=== PATIENT | male | born 1945 | race Caucasian/White ===

== ENCOUNTER 2019-11-10 13:21 | Outpatient (CLI) | payer OTHER, SELFPAY ==
[2019-11-13 01:00] LABS: SARS-CoV-2 RNA Undetected (Undetected); SARS-CoV-2 Specimen Source Nasopharynx
== END 2019-11-10 13:41 ==
PROVIDERS: Visit Provider Nurse Practitioner Family
DX: Z11.59 Encounter for screening for other viral diseases (principal)
CPT/HCPCS: U0003

== ENCOUNTER 2022-02-19 14:42 | Emergency (ER) | payer OTHER, SELFPAY ==
[2022-02-19 15:09] VITALS: BP 116/60; PULSE 66; RESP 17; TEMP 36.8; O2SAT 95
--- NOTE | 2022-02-19 15:45 | DI.RAD_ITS ---
Exam(s) XR PORTABLE CHEST AP EXAM: XR PORTABLE CHEST AP CLINICAL HISTORY: cough. TECHNIQUE: 2D digital imaging was performed. COMPARISON: CR CHEST 2 VIEWS PA,LAT from 02/26/2011 FINDINGS: LUNGS: Clear. No pleural abnormality seen. HEART: Normal. MEDIASTINUM: Normal. OTHER FINDINGS: None. IMPRESSION: No acute pulmonary findings. DATA REPOSITORY: RADIATION DOSE DELIVERED: Total DLP
--- NOTE | 2022-02-19 15:58 | W.ED.GENAD ---
Discharge Plan Disposition Patient Disposition: Home Condition: Stable Discharge Details Clinical Impression: URI (upper respiratory infection) Primary Care Provider: Unknown,Unknown ED Provider: Jake Davis Home Meds and New Rx's Prescriptions: New benzonatate 200 mg capsule 200 mg PO TID PRN (Reason: cough) Qty: 30 0RF Continued insulin glargine [Lantus U-100 Insulin] 100 UNITS/ML solution 50 units IJ DAILY simvastatin 80 MG tablet 80 mg PO DAILY levothyroxine 75 MCG tablet 75 mcg PO DAILY tamsulosin 0.4 MG capsule 0.4 mg PO DAILY omeprazole 20 MG capsule,delayed release(DR/EC) 20 mg PO DAILY hydrochlorothiazide 25 MG tablet 25 mg PO DAILY insulin aspart U-100 [Novolog Flexpen U-100 Insulin] 100 UNIT/ML insulin pen 20 - 25 units SQ AC vardenafil [Levitra] 20 MG tablet 20 mg PO DAILY hydromorphone [Dilaudid] 2 MG tablet 2 mg PO Q4H PRN PRNQty: 8 0RF No Action prednisone 20 MG tablet 60 mg PO .QD Qty: 12 0RF Discharge Instructions Instructions: Upper Respiratory Infection (ED) Additional Instructions: At this time your work-up is unremarkable for any emergent findings. I do feel that you have a viral illness and that you will need plenty of rest and stay hydrated. Your blood sugar was also noted to be elevated so please continue to take your insulin as prescribed. If you are not improving by early next week please follow-up with your primary care provider for reassessment and further treatment as needed at that time. Referrals: Primary Care Provider [Outside] - 5 days Discharge Data Discharge Date/Time-TO BE ENTERED AT DEPARTURE: 02/19/22 17:59 Medical Decision Making Patient presenting the emergency department for chief complaint of cold symptoms. Patient states for last 3 to 4 days he has had body aches, nasal congestion, sore throat, headache, and a intermittent dry cough. He also does state some associated diarrhea but denies chest pain, shortness of breath, belly pain, or other systemic symptoms. He does state some subjective fever and chills. Physical exam is unremarkable for any specific findings. I do feel that patient is suffering from acute viral illness. Patient is nontoxic, has no signs of meningitis, clear lung sounds so low suspicion of pneumonia and no obvious other life-threatening etiology can be identified at this time. Given duration of symptoms we will perform COVID and flu testing. Patient is vaccinated and boosted for COVID. We will also perform chest x-ray and fingerstick. Vital signs are stable with no hypotension, no hypoxia, and all vital signs within normal range. Fingerstick does show elevated glucose and will inform patient to continue to use prescribed insulin and monitor sugars at home but I do not feel that patient is having symptoms of DKA. Review of chest x-ray and radiologist interpretation shows no acute worrisome findings. Patient is negative for COVID, influenza, and RSV. At this time I feel that patient has a viral illness and we did discuss close monitoring of symptoms along with return and follow-up precautions. I do not feel that patient requires antibiotic medications at this time but did inform him of signs that would require him to return or follow-up with primary care provider for reconsideration. After discussion of diagnosis and plan of care patient has no further needs, questions, or concerns and states clear understanding to return to the emergency department for any worsening symptoms. This documentation was generated using [employer] dictation system, please disregard any oddities of phrase or misspellings. Imaging Data Radiologic Study: Imaging: X-Ray Radiologist's impression: FINDINGS: Lungs: No consolidation. Pleural spaces: No pleural effusion. No pneumothorax. Heart/Mediastinum: No cardiomegaly. Bones/joints: Evidence of right rotator cuff repair. No displaced fracture. IMPRESSION: Negative portable chest. Sign Out No HPI General Date/Time Provider Initiated Documentation: 02/19/22 15:31. Related Data Home Medications Medication Instructions Recorded Confirmed hydrochlorothiazide 25 mg tablet 25 mg PO DAILY 07/08/13 02/19/22 insulin aspart U-100 100 unit/mL 20 - 25 units SQ AC 07/08/13 02/19/22 (3 mL) subcutaneous pen (Novolog Flexpen U-100 Insulin aspart) insulin glargine 100 unit/mL 50 units IJ DAILY 07/08/13 02/19/22 subcutaneous solution (Lantus U-100 Insulin) levothyroxine 75 mcg tablet 75 mcg PO DAILY 07/08/13 02/19/22 omeprazole 20 mg capsule,delayed 20 mg PO DAILY 07/08/13 02/19/22 release simvastatin 80 mg tablet 80 mg PO DAILY 07/08/13 02/19/22 tamsulosin 0.4 mg capsule 0.4 mg PO DAILY 07/08/13 02/19/22 vardenafil 20 mg tablet (Levitra) 20 mg PO DAILY 07/08/13 02/19/22 hydromorphone 2 mg tablet 2 mg PO Q4H PRN PRN #8 tabs 09/30/14 02/19/22 (Dilaudid) prednisone 20 mg tablet 60 mg PO .QD ##12 10/26/16 02/19/22 benzonatate 200 mg capsule 200 mg PO TID PRN cough #30 caps 02/19/22 Previous Rx's Medication Instructions Recorded hydromorphone 2 mg tablet 2 mg PO Q4H PRN PRN #8 tabs 09/30/14 (Dilaudid) prednisone 20 mg tablet 60 mg PO .QD ##12 10/26/16 benzonatate 200 mg capsule 200 mg PO TID PRN cough #30 caps 02/19/22 Allergies Allergy/AdvReac Type Severity Reaction Status Date / Time naproxen Allergy Mild Skin Rash Unverified 02/19/22 15:14 General Stated Complaint: RespSymp MING: 3 Review of Systems Constitutional Constitutional: Reports body ache(s), Reports chills, Reports fever(s), Reports headache(s), Reports malaise and Reports poor appetite Eyes Eyes: Reports system reviewed and no additional complaints, except as documented ENT Ears, Nose, Mouth, and Throat: Reports headache(s), Reports nasal congestion, Reports nasal discharge and Reports sore throat Cardiovascular Cardiovascular: Denies chest pain and Denies dyspnea Respiratory Respiratory: Reports cough and Denies dyspnea Gastrointestinal Gastrointestinal: Denies abdominal pain, Reports diarrhea, Denies nausea and Denies vomiting Genitourinary Genitourinary: Reports system reviewed and no additional complaints, except as documented Musculoskeletal Musculoskeletal: Reports myalgias Integumentary/Breasts Skin/Breast: Denies rash Neurologic Neurologic: Reports headache(s) PFSH All Active Problems (Updated 02/19/22 @ 17:35 by Jkae Davis NP) URI (upper respiratory infection) (Acute) Hypothyroidism (Chronic) Diabetes (Chronic) Hypertension (Chronic) Social History Smoking/Tobacco Use Status: Current every day Smoking risk assessment performed?: Yes Drug use: Never Do you feel safe in your relationship?: Yes Exam Const General: cooperative, comfortable and no acute distress Orientation: alert and awake [facility] Head: normal to inspection, normocephalic and atraumatic Ears: hearing grossly normal bilaterally and TM's normal bilaterally General nose exam: external nose normal Face and sinus: no erythema Mouth: oral mucosae normal, no drooling, no muffled voice and no trismus Throat: posterior oropharynx normal Neck Neck: normal visual inspection, full ROM, no lymphadenopathy, no meningeal signs, trachea midline and supple Resp Effort & Inspection: normal respiratory effort, able to speak in complete sentences and cough Quality of cough: dry Auscultation: clear to auscultation bilaterally Cardio Rate: regular rate Rhythm: regular rhythm Heart Sounds: S1 normal, S2 normal, normal S1 and S2, no click, no gallops, no murmurs and no rubs Skin General skin exam: no rashes or lesions noted and dry skin (warm) Neuro General: patient alert, patient awake, patient oriented x3, gait normal and moves all extremities Cognition: normal cognition Speech: speech normal Course Vital Signs Vital signs: Vital Signs Temperature 36.8 C 02/19/22 15:09 Pulse 66 02/19/22 15:09 Respiratory Rate 17 02/19/22 15:09 Blood Pressure 116/60 02/19/22 15:09 Pulse Oximetry 95 02/19/22 15:09 Temperature 36.8 C 02/19/22 15:09 Temperature Source Temporal Artery Scan 02/19/22 15:09 Pulse 66 02/19/22 15:09 Respiratory Rate 17 02/19/22 15:09 Respiratory Effort 02/19/22 15:20 Blood Pressure 116/60 02/19/22 15:09 Blood Pressure Position Sitting 02/19/22 15:09 Pulse Oximetry 95 02/19/22 15:09 Oxygen Delivery Method Room Air 02/19/22 15:09 Oxygen Flow Rate 0 02/19/22 15:09 Pain Level 4 02/19/22 15:09
[2022-02-19 16:40] VITALS: TEMP 36.8
[2022-02-19] MEDS: Acetaminophen 325 MG TAB 650 MG PO (16:40)
[2022-02-19 17:27] LABS: COVID-19 PCR Negative (Negative); Influenza A PCR Negative (Negative); Influenza B PCR Negative (Negative); RSV PCR Negative (Negative)
[2022-02-19 17:29] LABS: Source Nasopharynx
[2022-02-19 17:41] VITALS: BP 136/70; PULSE 65; RESP 18; TEMP 36.6; O2SAT 94
--- NOTE | 2022-02-19 18:07 | DI.VRAD_ITS ---
PROCEDURE INFORMATION: Exam: XR Chest Exam date and time: 02/19/2022 16:54 Age: 76 years old Clinical indication: Cough TECHNIQUE: Imaging protocol: Radiologic exam of the chest. Views: 1 view. COMPARISON: No relevant prior studies available. FINDINGS: Lungs: No consolidation. Pleural spaces: No pleural effusion. No pneumothorax. Heart/Mediastinum: No cardiomegaly. Bones/joints: Evidence of right rotator cuff repair. No displaced fracture. IMPRESSION: Negative portable chest. Dictated and Authenticated by: Kaitlin Solomon MD. Ordering:LUZMARIA Joseph MD
== END 2022-02-19 17:59 | disposition home or self-care (01) ==
PROVIDERS: Emergency Provider Nurse Practitioner Family
DX: J06.9 Acute upper respiratory infection, unspecified (principal); Z20.822 Contact with and (suspected) exposure to COVID-19; R05.1 Acute cough; E11.9 Type 2 diabetes mellitus without complications
CPT/HCPCS: 36416; 82962; 87637; 99283; 71045

== ENCOUNTER 2023-06-30 22:48 | Emergency (ER) | payer OTHER, SELFPAY ==
[2023-06-30 22:51] VITALS: BP 184/99; PULSE 79; RESP 16; TEMP 36.6; O2SAT 98
[2023-06-30] MEDS: Amox. 875/Clav. 125, 2 TABS/BTL 1 TAB PO (23:20)
[2023-06-30] MEDS: Amoxicillin 875/Clav. 125 TAB PO (23:21)
[2023-06-30] MEDS: oxyCODONE 5 MG TAB PO (23:21)
--- NOTE | 2023-06-30 23:54 | ED.GENADUL_ITS ---
Discharge Plan Disposition Patient Disposition: Home Condition: Stable Discharge Details Clinical Impression: Pain, dental Primary Care Provider: Joe Lee ED Provider: William Rubi Home Meds and New Rx's Prescriptions: New amoxicillin-pot clavulanate 875-125 mg tablet 1 tab PO BID 6 Days Qty: 12 0RF No Action insulin glargine [Lantus U-100 Insulin] 100 UNITS/ML solution 50 units IJ DAILY simvastatin 80 MG tablet 80 mg PO DAILY levothyroxine 75 MCG tablet 75 mcg PO DAILY tamsulosin 0.4 MG capsule 0.4 mg PO DAILY omeprazole 20 MG capsule,delayed release(DR/EC) 20 mg PO DAILY hydrochlorothiazide 25 MG tablet 25 mg PO DAILY insulin aspart U-100 [Novolog FlexPen U-100 Insulin] 100 UNIT/ML insulin pen 20 - 25 units SQ AC vardenafil [Levitra] 20 MG tablet 20 mg PO DAILY hydromorphone [Dilaudid] 2 MG tablet 2 mg PO Q4H PRN PRNQty: 8 0RF prednisone 20 MG tablet 60 mg PO .QD Qty: 12 0RF benzonatate 200 mg capsule 200 mg PO TID PRN (Reason: cough) Qty: 30 0RF Discharge Instructions Instructions: Toothache (ED) Additional Instructions: please start antibiotics as prescribed follow up with dentist Discharge Data Discharge Date/Time-TO BE ENTERED AT DEPARTURE: 06/30/23 23:25 HPI General Date/Time Provider Initiated Documentation: 06/30/23 23:05 . Limitations to Documentation: no limitations . Information obtained by: patient and family . HPI Narrative: 77-year-old gentleman with past medical history of diabetes, hypertension, hypothyroidism and chronic dental pain presents for evaluation of worsening of his dental pain. He reports that he has an issue with his upper right-sided molars. He has been evaluated by a dentist but was referred to oral surgeon for extraction. He has not been able to follow-up with an oral surgeon to get them extracted. He reports the pain is severe, not improved with his daily tramadol or Tylenol use. Associated with some mild facial swelling. Denies any drainage or fevers. Reports pain worse with eating. Related Data Home Medications Medication Instructions Recorded Confirmed hydrochlorothiazide 25 mg tablet 25 mg PO DAILY 07/08/13 02/19/22 insulin aspart U-100 100 unit/mL 20 - 25 units SQ AC 07/08/13 02/19/22 (3 mL) subcutaneous pen (Novolog FlexPen U-100 Insulin aspart) insulin glargine 100 unit/mL 50 units IJ DAILY 07/08/13 02/19/22 subcutaneous solution (Lantus U-100 Insulin) levothyroxine 75 mcg tablet 75 mcg PO DAILY 07/08/13 02/19/22 omeprazole 20 mg capsule,delayed 20 mg PO DAILY 07/08/13 02/19/22 release simvastatin 80 mg tablet 80 mg PO DAILY 07/08/13 02/19/22 tamsulosin 0.4 mg capsule 0.4 mg PO DAILY 07/08/13 02/19/22 vardenafil 20 mg tablet (Levitra) 20 mg PO DAILY 07/08/13 02/19/22 hydromorphone 2 mg tablet 2 mg PO Q4H PRN PRN #8 tabs 09/30/14 02/19/22 (Dilaudid) prednisone 20 mg tablet 60 mg (3 x 20 mg) PO .QD ##12 10/26/16 02/19/22 benzonatate 200 mg capsule 200 mg PO TID PRN cough #30 caps 02/19/22 amoxicillin 875 mg-potassium 1 tab PO BID 6 days #12 tabs 06/30/23 clavulanate 125 mg tablet Previous Rx's Medication Instructions Recorded hydromorphone 2 mg tablet 2 mg PO Q4H PRN PRN #8 tabs 09/30/14 (Dilaudid) prednisone 20 mg tablet 60 mg (3 x 20 mg) PO .QD ##12 10/26/16 benzonatate 200 mg capsule 200 mg PO TID PRN cough #30 caps 02/19/22 amoxicillin 875 mg-potassium 1 tab PO BID 6 days #12 tabs 06/30/23 clavulanate 125 mg tablet Allergies Allergy/AdvReac Type Severity Reaction Status Date / Time naproxen Allergy Mild Skin Rash Unverified 02/19/22 15:14 General Stated Complaint: DentalOral MING: 4 Exam Narrative Exam Narrative: Review of Systems: All systems reviewed & are unremarkable except as noted in HPI and below Well-developed, no acute distress Slight right-sided facial swelling, not significant, no tenderness to palpation over the area Upper right posterior molars cracks, carious, no significant gingival swelling TM normal, no mastoid tenderness PERRL, normal conjunctiva RRR Unlabored respiratory effort Nondistended abdomen Extremities w/o deformity, no cyanosis, no edema No rashes or lesions. no focal neurologic deficits Appropriate mood and affect Course Vital Signs Vital signs: Vital Signs Temperature 36.6 C 06/30/23 22:51 Pulse 79 06/30/23 22:51 Respiratory Rate 16 06/30/23 22:51 Blood Pressure 184/99 H 06/30/23 22:51 Pulse Oximetry 98 06/30/23 22:51 Temperature 36.6 C 06/30/23 22:51 Temperature Source Oral 06/30/23 22:51 Pulse 79 06/30/23 22:51 Respiratory Rate 16 06/30/23 22:51 Respiratory Effort Normal 06/30/23 22:58 Blood Pressure 184/99 H 06/30/23 22:51 Pulse Oximetry 98 06/30/23 22:51 Oxygen Delivery Method Room Air 06/30/23 22:51 Oxygen Flow Rate 0 06/30/23 22:51 Pain Level 8 06/30/23 22:51 Medical Decision Making Emergent evaluation of dental pain. Patient has small amount of facial swelling, no evidence of mastoiditis, low risk angina or other deep space infection. There is no obvious dental abscess that is drainable on my examination. He does need a dental extraction. Will start Augmentin. Discussed appropriate pain control. Will give a single dose of oxycodone in the emergency department, but since the patient is on tramadol at home I do not feel comfortable prescribing any additional pain medication. Recommend close follow-up with his PCP and pain management team as well as oral surgeon for definitive care. Quality:SDOH Health Related Social Needs: No Data to Display PFSH All Active Problems Pain, dental (Acute) Hypothyroidism (Chronic) Diabetes (Chronic) Hypertension (Chronic) Social History Smoking/Tobacco Use Status: Current every day Tobacco Type: cigarettes Smoking risk assessment performed?: Yes Drug use: Never Do you feel safe in your relationship?: Yes
== END 2023-06-30 23:25 | disposition home or self-care (01) ==
PROVIDERS: Emergency Provider Emergency Medicine; PCP Internal Medicine Geriatric Medicine
DX: K08.89 Other specified disorders of teeth and supporting structures (principal); E11.9 Type 2 diabetes mellitus without complications; E03.9 Hypothyroidism, unspecified
CPT/HCPCS: 99283

== ENCOUNTER 2023-07-15 17:24 | Emergency (ER) | payer OTHER, SELFPAY ==
[2023-07-15 17:26] VITALS: BP 157/69; PULSE 69; RESP 16; TEMP 37.2; O2SAT 98
--- NOTE | 2023-07-15 17:41 | ED.GENADUL_ITS ---
Discharge Plan Disposition Patient Disposition: Home Condition: Stable Discharge Details Clinical Impression: Healing wound Primary Care Provider: Joe Lee ED Provider: Jamie Thorne Home Meds and New Rx's Prescriptions: Continued insulin glargine [Lantus U-100 Insulin] 100 UNITS/ML solution 50 units IJ DAILY simvastatin 80 MG tablet 80 mg PO DAILY levothyroxine 75 MCG tablet 75 mcg PO DAILY tamsulosin 0.4 MG capsule 0.4 mg PO DAILY omeprazole 20 MG capsule,delayed release(DR/EC) 20 mg PO DAILY hydrochlorothiazide 25 MG tablet 25 mg PO DAILY insulin aspart U-100 [Novolog FlexPen U-100 Insulin] 100 UNIT/ML insulin pen 20 - 25 units SQ AC vardenafil [Levitra] 20 MG tablet 20 mg PO DAILY hydromorphone [Dilaudid] 2 MG tablet 2 mg PO Q4H PRN PRNQty: 8 0RF prednisone 20 MG tablet 60 mg PO .QD Qty: 12 0RF Discharge Instructions Additional Instructions: Your wound appears normal without signs of infection currently Follow-up with your primary care provider or the person that did the procedure within a week If you feel more ill, have severe worsening pain or fevers return to the emergency department for reevaluation HPI General Mode of arrival: ambulatory . Date/Time Provider Initiated Documentation: 07/15/23 17:25 . Limitations to Documentation: no limitations . Information obtained by: patient . History of Present Illness 77 year old M presents to the emergency department with the chief complaint of Wound inspection, described as mild, Patient started experiencing this week(s) (1) and it has been constant. No relieving factors improve symptom(s), No exacerbating factors reported . Patient notes no other symptoms.. Patient did receive the following treatments prior to arrival, none Related Data Home Medications Medication Instructions Recorded Confirmed hydrochlorothiazide 25 mg tablet 25 mg PO DAILY 07/08/13 07/15/23 insulin aspart U-100 100 unit/mL 20 - 25 units SQ AC 07/08/13 07/15/23 (3 mL) subcutaneous pen (Novolog FlexPen U-100 Insulin aspart) insulin glargine 100 unit/mL 50 units IJ DAILY 07/08/13 07/15/23 subcutaneous solution (Lantus U-100 Insulin) levothyroxine 75 mcg tablet 75 mcg PO DAILY 07/08/13 07/15/23 omeprazole 20 mg capsule,delayed 20 mg PO DAILY 07/08/13 07/15/23 release simvastatin 80 mg tablet 80 mg PO DAILY 07/08/13 07/15/23 tamsulosin 0.4 mg capsule 0.4 mg PO DAILY 07/08/13 07/15/23 vardenafil 20 mg tablet (Levitra) 20 mg PO DAILY 07/08/13 07/15/23 hydromorphone 2 mg tablet 2 mg PO Q4H PRN PRN #8 tabs 09/30/14 07/15/23 (Dilaudid) prednisone 20 mg tablet 60 mg (3 x 20 mg) PO .QD ##12 10/26/16 07/15/23 Previous Rx's Medication Instructions Recorded hydromorphone 2 mg tablet 2 mg PO Q4H PRN PRN #8 tabs 09/30/14 (Dilaudid) prednisone 20 mg tablet 60 mg (3 x 20 mg) PO .QD ##12 10/26/16 Allergies Allergy/AdvReac Type Severity Reaction Status Date / Time naproxen Allergy Mild Skin Rash Unverified 07/15/23 17:33 General Stated Complaint: RashLesion MING: 4 Review of Systems All systems reviewed & are unremarkable except as noted in HPI and below Constitutional Constitutional: Denies chills, Denies fever(s) and Denies weakness Cardiovascular Cardiovascular: Denies chest pain and Denies dyspnea Respiratory Respiratory: Denies cough and Denies dyspnea Gastrointestinal Gastrointestinal: Denies abdominal pain, Denies nausea and Denies vomiting Musculoskeletal Musculoskeletal: Denies joint swelling Neurologic Neurologic: Denies weakness Exam Const General: no acute distress Orientation: alert [facility] Head: normal to inspection Ears: external ears normal General nose exam: external nose normal Mouth: moist mucous membranes Eyes General: appearance normal, both eyes and all related structures Neck Neck: normal visual inspection Resp Effort & Inspection: normal respiratory effort and able to speak in complete sentences Cardio Rate: regular rate Skin General skin exam: elasticity normal Neuro General: patient alert and patient oriented x3 Extrem General: normal to inspection Psych Mental Status: mental status grossly normal Course Vital Signs Vital signs: Vital Signs Temperature 37.2 C 07/15/23 17:26 Pulse 69 07/15/23 17:26 Respiratory Rate 16 07/15/23 17:26 Blood Pressure 157/69 H 07/15/23 17:26 Pulse Oximetry 98 07/15/23 17:26 Temperature 37.2 C 07/15/23 17:26 Temperature Source Tympanic 07/15/23 17:26 Pulse 69 07/15/23 17:26 Respiratory Rate 16 07/15/23 17:26 Respiratory Effort Normal 07/15/23 17:32 Blood Pressure 157/69 H 07/15/23 17:26 Pulse Oximetry 98 07/15/23 17:26 Oxygen Delivery Method Room Air 07/15/23 17:26 Oxygen Flow Rate 0 07/15/23 17:26 Pain Level 6 07/15/23 17:26 Medical Decision Making 77-year-old male who [facility], comes in after he had some bleeding from the wound. Denies any fevers, no new pain or discomfort at the site. He arrives ambulatory and appears well in no distress. He has an approximately 5 cm vertical incision with sutures in place, there is 1 mm of mild surrounding erythema, no warmth, no tenderness, no drainage, no fluctuance. Wound appears to be well-healing without any signs of infection. Discussed with him and do not feel antibiotics indicated. Advised to follow-up with his PCP or the person that did the procedure within 1 week, return precautions given Differential Diagnosis Differential Diagnosis: Hematoma, postop healing, wound infection Quality:SDOH Health Related Social Needs: No Data to Display PFSH All Active Problems (Updated 07/15/23 @ 17:44 by Jamie Thorne MD) Healing wound (Acute) Pain, dental (Acute) Hypothyroidism (Chronic) Diabetes (Chronic) Hypertension (Chronic) Social History Smoking/Tobacco Use Status: Current every day Tobacco Type: cigarettes Smoking risk assessment performed?: Yes Drug use: Never Do you feel safe in your relationship?: Yes
== END 2023-07-15 17:58 | disposition home or self-care (01) ==
LOC: ER 18:20
PROVIDERS: Emergency Provider Emergency Medicine; PCP Internal Medicine Geriatric Medicine
DX: L76.82 Other postprocedural complications of skin and subcutaneous tissue (principal); E11.9 Type 2 diabetes mellitus without complications; Z79.4 Long term (current) use of insulin
CPT/HCPCS: 99282

== ENCOUNTER 2023-07-24 21:07 | Emergency (ER) | payer OTHER, SELFPAY ==
[2023-07-24] VITALS (51 sets, daily range): BP systolic 146–152; BP diastolic 69–90; PULSE 55–70; RESP 11–22; O2SAT 92–96
--- NOTE | 2023-07-24 21:30 | DI.CT_ITS ---
Exam(s) CT ABDOMEN PELVIS W EXAM: CT ABDOMEN PELVIS W CLINICAL HISTORY: firm hard abd, worsening distension over months. TECHNIQUE: Imaging Protocol: Axial computed tomography images with coronal and sagittal reformatted images were created and reviewed CONTRAST MATERIAL: Intravenous: Omnipaque-350 100cc Oral: None COMPARISON: CT RENAL COLIC WO CONTRAST from 09/29/2014 FINDINGS: VISUALIZED LUNG BASES: No nodules nor pleural effusions evident. ABDOMEN: There is no ascites. GI: Abnormal density-possible mass in the 3rd part of the duodenum Mesentery: There is very mild streaking in the central mesentery, not associated with the thrombosis of mesenteric vessels. No gross mesenteric lymphadenopathy evident. LIVER: There are no focal hepatic lesions evident. No dilated intrahepatic ducts. GALLBLADDER/BILIARY: No obvious gallbladder pathology. CBD is not dilated. PANCREAS: No evidence of pancreatic mass nor dilatation of the pancreatic duct. SPLEEN: Spleen is not enlarged. No obvious intrasplenic lesions. Splenic and portal veins are paten t. ADRENALS: Nonspecific thickening of both adrenal glands, slightly more so on the left side. KIDNEYS:There is 5 centimeter cyst in superior pole of the right kidney. Does not require further wo rkup. No solid lesions in either kidney. Bilateral nephrolithiasis. ABDOMINAL AORTA: Abdominal aorta is not enlarged. LYMPH NODES:There is no retroperitoneal nor paraaortic adenopathy. ABDOMINAL WALL: No evidence of significant anterior abdominal wall nor inguinal hernia. GI: There is no evidence of bowel obstruction, free air, nor abscess. PELVIS: GI: No evidence of appendicitis.No evidence of sigmoid diverticulitis.Moderate amount of fecal materi al in the colon. LYMPH NODES: There is no intrapelvic nor inguinal adenopathy. REPRODUCTIVE: Enlarged prostate gland. Measures 6 cm across. URINARY BLADDER: No calculi nor obvious masses evident OSSEOUS: No fractures and no significant osseous lesions. Right hip prosthesis evident. Previous lumbar spine decompression surgery/laminectomies. IMPRESSION: 1. Bilateral nonobstructive nephrolithiasis. No staghorn calculi. No evidence of pyelonephritis. 2. There is mild streaking in the central mesentery. No associated matted lymph nodes nor gross mese nteric lymphadenopathy evident. There are no thrombosed mesenteric vessels. 3. Bilateral adrenal gland thickening, slightly more so on the left side. 4. Moderate amount of increased fecal material in the colon but no gross distention. No fecal impact ion. No evidence of diverticulitis. No appendicitis. No ascites. 5. enlarged prostate gland. RADIATION DOSE DELIVERED: 1,092.52mGy.cm Total DLP DATA REPOSITORY: All CT scans at this facility are submitted to the National Radiology Data Registry (NRDR) Dose Index Registry (DIR) with the [employer] ([employer]). RADIATION OPTIMIZATION: All CT scans at this facility use at least one of these dose optimization te chniques: automated exposure control; mA and/or kV adjustment per patient size (includes targeted exa ms where dose is matched to clinical indication); or iterative reconstruction.
--- NOTE | 2023-07-24 21:36 | W.ED.GENAD ---
Discharge Plan Disposition Patient Disposition: Home Condition: Stable Discharge Details Chief Complaint: SOB Clinical Impression: Mesenteric panniculitis, Elevated lipase Primary Care Provider: Joe Lee ED Provider: Nas Moulton Home Meds and New Rx's Prescriptions: No Action insulin glargine [Lantus U-100 Insulin] 100 UNITS/ML solution 50 units IJ DAILY simvastatin 80 MG tablet 80 mg PO DAILY levothyroxine 75 MCG tablet 75 mcg PO DAILY tamsulosin 0.4 MG capsule 0.4 mg PO DAILY omeprazole 20 MG capsule,delayed release(DR/EC) 20 mg PO DAILY hydrochlorothiazide 25 MG tablet 25 mg PO DAILY insulin aspart U-100 [Novolog FlexPen U-100 Insulin] 100 UNIT/ML insulin pen 20 - 25 units SQ AC vardenafil [Levitra] 20 MG tablet 20 mg PO DAILY hydromorphone [Dilaudid] 2 MG tablet 2 mg PO Q4H PRN PRNQty: 8 0RF prednisone 20 MG tablet 60 mg PO .QD Qty: 12 0RF Discharge Instructions Additional Instructions: Your CT scan showed some inflammation of your mesentery described as mesenteric panniculitis, your lipase level was also elevated today. Please follow-up closely with your primary care physician at the [facility] to discuss further treatment and diagnostic studies for your shortness of breath and abdominal symptoms. Please return to the emergency department for any worsening symptoms HPI General Date/Time Provider Initiated Documentation: 07/24/23 21:18. HPI Narrative: 77-year-old male history of smoking presents with worsening abdominal distention and tightness that is making it harder for him to breathe. No longer drinks. Denies history of liver disease. Had recent biopsy of lesion on his back. Denies cough fever chills nausea vomiting or chest pain Related Data Home Medications Medication Instructions Recorded Confirmed hydrochlorothiazide 25 mg tablet 25 mg PO DAILY 07/08/13 07/15/23 insulin aspart U-100 100 unit/mL 20 - 25 units SQ AC 07/08/13 07/15/23 (3 mL) subcutaneous pen (Novolog FlexPen U-100 Insulin aspart) insulin glargine 100 unit/mL 50 units IJ DAILY 07/08/13 07/15/23 subcutaneous solution (Lantus U-100 Insulin) levothyroxine 75 mcg tablet 75 mcg PO DAILY 07/08/13 07/15/23 omeprazole 20 mg capsule,delayed 20 mg PO DAILY 07/08/13 07/15/23 release simvastatin 80 mg tablet 80 mg PO DAILY 07/08/13 07/15/23 tamsulosin 0.4 mg capsule 0.4 mg PO DAILY 07/08/13 07/15/23 vardenafil 20 mg tablet (Levitra) 20 mg PO DAILY 07/08/13 07/15/23 hydromorphone 2 mg tablet 2 mg PO Q4H PRN PRN #8 tabs 09/30/14 07/15/23 (Dilaudid) prednisone 20 mg tablet 60 mg (3 x 20 mg) PO .QD ##12 10/26/16 07/15/23 Previous Rx's Medication Instructions Recorded hydromorphone 2 mg tablet 2 mg PO Q4H PRN PRN #8 tabs 09/30/14 (Dilaudid) prednisone 20 mg tablet 60 mg (3 x 20 mg) PO .QD ##12 10/26/16 Allergies Allergy/AdvReac Type Severity Reaction Status Date / Time naproxen Allergy Mild Skin Rash Unverified 07/15/23 17:33 General Stated Complaint: SOB MING: 3 Review of Systems Narrative: Review of Systems Constitutional: negative Eyes: negative ENT: negative Cardiovascular: negative Respiratory: negative Gastrointestinal: Abdominal tightness : negative Musculoskeletal: negative Skin: negative Neurologic: negative Psych: negative Exam Narrative Exam Narrative: Physical Examination General: alert, awake, cooperative, resting comfortably, no acute distress HEENT: normocephalic, atraumatic; PERRL, EOM intact, conjunctiva normal; no nasal discharge; moist mucous membranes, oral and pharyngeal mucosa normal, tolerating secretions Neck: supple, trachea midline; full ROM Chest: normal to inspection Respiratory: normal respiratory effort, speaking in full sentences, clear to auscultation, no wheezing, rales or rhonchi Cardiac: regular rate, regular rhythm, S1S2 intact, no murmurs rubs or gallops GI: Firm large abdomen nontender no appreciable fluid wave Back: Well-healing soft tissue biopsy site no active bleeding no purulence Skin: no lesions, rashes or trauma appreciated Neuro: AAOx3, normal speech, moving all extremities Psych: Appropriate mood and affect Course Vital Signs Vital signs: Vital Signs Pulse 70 07/24/23 21:13 Respiratory Rate 18 07/24/23 21:13 Blood Pressure 146/90 H 07/24/23 21:13 Pulse Oximetry 96 07/24/23 21:13 Temperature Source Tympanic 07/24/23 21:13 Pulse 70 07/24/23 21:13 Respiratory Rate 18 07/24/23 21:13 Respiratory Effort Normal, Non-Labored 07/24/23 21:19 Blood Pressure 146/90 H 07/24/23 21:13 Blood Pressure Position Sitting 07/24/23 21:13 Pulse Oximetry 96 07/24/23 21:13 Oxygen Delivery Method Room Air 07/24/23 21:13 Oxygen Flow Rate 0 07/24/23 21:13 Pain Level 7 07/24/23 21:13 Medical Decision Making 77-year-old male presents with subjective tightness to his abdomen that is affecting his breathing worsening over the past several months, patient denies cough fevers chills nausea vomiting or chest pain, patient does have firm large abdomen nontender no fluid wave appreciated afebrile nontoxic nonperitoneal, lungs clear bilaterally, history of drinking no longer drinks, history of smoking continues to smoke. Consider abdominal ascites versus abdominal malignancy lower suspicion for bowel obstruction or intra-abdominal infection muscles consider developing COPD lower suspicion for CHF ACS or aortic pathology. Screening labs CT abdomen pelvis, chest x-ray no respiratory distress not requiring any oxygen nontachypneic. Low suspicion for pneumonia or pneumothorax. 23: 41 CT abdomen read as mesenteric panniculitis evidence of elevated lipase, no nausea no vomiting no fevers no chills nonperitoneal. No respiratory distress not hypoxic. [facility] will have an [facility]. Home care instructions and return precautions given Quality:SDOH Health Related Social Needs: No Data to Display [facility] All Active Problems (Updated 07/24/23 @ 23:43 by Nas Moulton MD) Elevated lipase (Acute) Mesenteric panniculitis (Acute) Healing wound (Acute) Pain, dental (Acute) Hypothyroidism (Chronic) Diabetes (Chronic) Hypertension (Chronic) Social History Smoking/Tobacco Use Status: Current every day Tobacco Type: cigarettes Smoking risk assessment performed?: Yes Alcohol Intake: never Drug use: Never Substance use type: does not use Do you feel safe at home: Yes Do you feel safe in your relationship?: Yes
[2023-07-24 21:54] LABS: Abs Immature Grans 0.02 10^3/uL (0.0-0.06); Absolute Basophil Count 0.05 10^3/uL (0.0-0.2); Absolute Eosinophil Count 0.18 10^3/uL (0.0-0.7); Absolute Lymphocyte Count 1.89 10^3/uL (1.2-3.4); Absolute Monocyte Count 0.48 10^3/uL (0.1-0.8); Basophils % 0.7; Eosinophils % 2.5; HCT 43.5 % (40.0-50.0); HGB 14.4 g/dL (13.5-17.5); Immature Grans % 0.3; Lymphocytes % 25.8; MCH 34.6 pg (27.0-33.0); MCHC 33.1 % (32.0-36.0); MCV 105 fL (80-95); MPV 8.9 fL (8.0-11.0); Monocytes % 6.6; Neutrophils % 64.1; Platelet Count 226 10^3/uL (130-400); RBC 4.16 10^6/uL (4.36-5.78); RDW 14.1 % (11.8-14.1); RDW-SD 54.4 fL; WBC 7.32 10^3/uL (4.4-10.8)
[2023-07-24 22:08] LABS: INR 1.1 (0.9-1.1); PTT Activated 27.7 sec (23.6-32.8); Prothrombin Time 10.6 sec (9.1-11.1)
[2023-07-24 22:09] LABS: ALT 32 U/L (16-63); AST 19 U/L (15-37); Albumin 3.7 g/dL (3.4-5.0); Alkaline Phosphatase 70 U/L (46-116); Anion Gap 8.8 mmol/L (3-11); BUN 13 mg/dL (7-18); Bilirubin, Total 0.4 mg/dL (0.2-1.0); CO2 29.2 mmol/L (21.0-32.0); CREATININE 1.2 mg/dL (0.70-1.30); Calcium 8.7 mg/dL (8.5-10.1); Chloride 103 mmol/L (98-107); Estimated GFR 62.67 (mL/min/1.73m2); Glucose 151 mg/dL (74-106); Sodium 141 mmol/L (136-145); Total Protein 6.9 g/dL (6.4-8.2)
[2023-07-24 22:10] LABS: Lipase > 375 U/L (16-77)
[2023-07-24] MEDS: Normal Saline - Diluent 50 ML VIAL IJ (22:34)
[2023-07-24] MEDS: Omnipaque 350 MG/ML 100 ML BTL IJ (22:35)
--- NOTE | 2023-07-24 22:38 | DI.RAD_ITS ---
Exam(s) XR CHEST 2V PA LATERAL EXAM: XR CHEST 2V PA LATERAL CLINICAL HISTORY: progressive sob, hx smoking. TECHNIQUE: 2D digital imaging was performed. COMPARISON: CR,XR XR PORTABLE CHEST AP from 02/19/2022 FINDINGS: 2 views: Heart size is normal. The mediastinum is not widened. Lungs are clear. No infiltrates nor pleural effusions. Again noted is evidence of previous right shoulder surgery. IMPRESSION: No acute pulmonary findings. DATA REPOSITORY: RADIATION DOSE DELIVERED:
--- NOTE | 2023-07-24 23:20 | DI.VRAD_ITS ---
PROCEDURE INFORMATION: Exam: XR Chest Exam date and time: 07/24/2023 10:43 PM Age: 77 years old Clinical indication: Other: Progressive SOB, HX smoking TECHNIQUE: Imaging protocol: Radiologic exam of the chest. Views: 2 views. COMPARISON: CR XR PORTABLE CHEST AP 02/19/2022 4:54 PM FINDINGS: Lungs: Unremarkable. No consolidation. Pleural spaces: Unremarkable. No pleural effusion. No pneumothorax. Heart/Mediastinum: Unremarkable. No cardiomegaly. Bones/joints: Unremarkable. IMPRESSION: No acute findings. Dictated and Authenticated by: Dre Giraldo MD. Ordering:PFLASH Lovell MD
--- NOTE | 2023-07-24 23:24 | DI.VRAD_ITS ---
PROCEDURE INFORMATION: Exam: CT Abdomen And Pelvis With Contrast Exam date and time: 07/24/2023 10:35 PM Age: 77 years old Clinical indication: Other: Firm hard abd, worsening disension over months TECHNIQUE: Imaging protocol: Computed tomography of the abdomen and pelvis with contrast. Radiation optimization: All CT scans at this facility use at least one of these dose optimization techniques: automated exposure control; mA and/or kV adjustment per patient size (includes targeted exams where dose is matched to clinical indication); or iterative reconstruction. Contrast material: [id number]; Contrast volume: 100 ml; Contrast route: INTRAVENOUS (IV); COMPARISON: CR XR PORTABLE CHEST AP 02/19/2022 4:54 PM FINDINGS: Liver: Normal. No mass. Gallbladder and bile ducts: Normal. No calcified stones. No ductal dilation. Pancreas: Unremarkable. Spleen: Normal. Adrenal glands: Normal. No mass. Kidneys and ureters: Right renal cyst. Nonobstructing stones in the kidneys bilaterally. Stomach and bowel: Unremarkable. No bowel wall thickening or intestinal obstruction. Appendix: Normal appendix. Intraperitoneal space: Unremarkable. No pneumoperitoneum. No abscess. Vasculature: Unremarkable. Lymph nodes: Mildly increased attenuation of the mesentery near its root with pseudocapsule and small associated mesenteric lymph nodes, consistent with mesenteric panniculitis. Urinary bladder: Unremarkable as visualized. Reproductive: Prostatomegaly. Bones/joints: Unremarkable. No acute fracture. Soft tissues: Unremarkable. IMPRESSION: Mesenteric panniculitis. Dictated and Authenticated by: Dre Giraldo MD. Ordering:NADIR Lovell MD
[2023-07-25 00:29] VITALS: BP 140/70; PULSE 80; RESP 20; TEMP 36.6; O2SAT 98
== END 2023-07-25 00:29 | disposition home or self-care (01) ==
PROVIDERS: Emergency Provider Emergency Medicine; PCP Internal Medicine Geriatric Medicine
DX: K65.4 Sclerosing mesenteritis (principal); R74.8 Abnormal levels of other serum enzymes; R14.0 Abdominal distension (gaseous); E11.9 Type 2 diabetes mellitus without complications; I10 Essential (primary) hypertension; Z79.4 Long term (current) use of insulin; F17.210 Nicotine dependence, cigarettes, uncomplicated
CPT/HCPCS: 36415; 80053; 83690; 99284; 99285; 71046; 74177; 85025; 85610; 85730; J3490

== ENCOUNTER 2024-06-16 13:53 | Emergency (ER) | payer OTHER, SELFPAY ==
[2024-06-16 14:25] VITALS: BP 118/70; PULSE 65; RESP 24; TEMP 36.7; O2SAT 88
--- NOTE | 2024-06-16 14:30 | RT.EKG_ITS ---
APPROVED REPORT Exam: Resting ECG Reason for Exam: cough, Patient Location: E HR:61 bpm ECG Measurements Heart Rate 61 AXIS PA 194 P 48 QRSd 132 QRS -16 QT 463 T 1 QTc 466 Conclusion Sinus rhythm...normal P axis, V-rate 60- 99 Right bundle branch block...QRSd>120, terminal axis(90,270) Physician: no stemi
[2024-06-16 15:24] VITALS: BP 112/68; PULSE 65; RESP 24; TEMP 36.7; O2SAT 90
--- NOTE | 2024-06-16 15:37 | DI.RAD_ITS ---
Exam(s) XR PORTABLE CHEST AP EXAM: XR PORTABLE CHEST AP CLINICAL HISTORY: SOB, cough, eval for pneumonia TECHNIQUE: 2D digital imaging was performed of the chest. One image was obtained. An AP view was ob tained. COMPARISON: CR,XR XR PORTABLE CHEST AP from 02/19/2022 CR,XR XR CHEST 2V PA LATERAL from 07/24/2023 FINDINGS: MEDIASTINUM: Normal. HEART: Normal. PULMONARY VASCULATURE: Normal. LUNGS: Clear. PLEURAL SPACE: No pleural effusion or pneumothorax. BONE:Within normal limits for the patient's age. OTHER FINDINGS:Normal. IMPRESSION: No acute pulmonary findings. DATA REPOSITORY: RADIATION DOSE DELIVERED:
[2024-06-16 15:46] LABS: COVID-19 PCR Negative (Negative); Influenza A PCR Negative (Negative); Influenza B PCR Negative (Negative); RSV PCR Negative (Negative)
[2024-06-16 15:50] LABS: Source Nasopharynx
--- NOTE | 2024-06-16 16:03 | W.ED.GENAD ---
Discharge Plan Disposition Patient Disposition: Home Condition: Good Discharge Details Clinical Impression: Community acquired pneumonia Primary Care Provider: Joe Lee ED Provider: Jason Dixon Home Meds and New Rx's Prescriptions: New doxycycline hyclate 100 mg tablet 100 mg PO BID Qty: 20 0RF amoxicillin-pot clavulanate 875-125 mg tablet 1 tab PO BID 7 Days Qty: 14 0RF prednisone 50 mg tablet 50 mg PO DAILY Qty: 5 0RF Discontinued methotrexate sodium 2.5 mg tablet 7.5 mg PO QWEEK No Action insulin glargine [Lantus U-100 Insulin] 100 UNITS/ML solution 50 units IJ DAILY simvastatin 80 MG tablet 80 mg PO DAILY levothyroxine 75 MCG tablet 112 mcg PO DAILY tamsulosin 0.4 MG capsule 0.4 mg PO DAILY omeprazole 20 MG capsule,delayed release(DR/EC) 20 mg PO DAILY hydrochlorothiazide 25 MG tablet 25 mg PO DAILY insulin aspart U-100 [Novolog FlexPen U-100 Insulin] 100 UNIT/ML insulin pen 20 - 25 units SQ AC vardenafil [Levitra] 20 MG tablet 20 mg PO DAILY hydromorphone [Dilaudid] 2 MG tablet 2 mg PO Q4H PRN PRNQty: 8 0RF aspirin 81 mg tablet,delayed release (DR/EC) 81 mg PO DAILY atorvastatin 20 mg tablet 20 mg PO QPM buspirone 10 mg tablet 20 mg PO BID camphor Spirit See Rx Instructions topical BID Rx Instructions: 1 Application topically twice a day; topically; cyanocobalamin (vitamin B-12) 1,000 mcg capsule 1,000 mcg PO DAILY diclofenac sodium 1 % gel See Rx Instructions topical TID PRN Rx Instructions: 1 application topically three times a day PRN; 1 applicaiton topically once; apply to single elbow, wrist or hand; for hand includes palm/fingers/back of hand docusate sodium 100 mg capsule 100 mg PO BID PRN dorzolamide 2 % drops 1 drp ophthalmic (eye) .Q12 duloxetine 60 mg capsule,delayed release(DR/EC) 60 mg PO DAILY lisinopril 40 mg tablet 40 mg PO DAILY Ozempic 0.25 mg or 0.5 mg(2 mg/1.5 mL) pen injector 0.5 mg subcut QWEEK omega 2-lqj-day-fish oil [Fish Oil] 1,000 mg (120 mg-180 mg) capsule 1 cap PO DAILY folic acid 1 mg tablet 3 mg PO DAILY gabapentin 600 mg tablet 600 mg PO TID Jardiance 25 mg tablet 25 mg PO DAILY Lactobacillus acidophilus 500 million cell capsule 500 mmu cells PO DAILY lidocaine 5 % adhesive patch,medicated 1 patch topical DAILY Rx Instructions: leave on most painful area for up to 12 hrs lidocaine HCl [Lidocaine Plus] 4 % cream 1 applic topical DAILY prednisone 20 MG tablet 60 mg PO .QD Qty: 12 0RF methocarbamol 500 mg tablet 500 mg PO BID & HS PRN Patient Comments: TAKE ONE TABLET BY MOUTH TWICE A DAY NEEDED FOR PAIN MONITOR FOR DROWSINESS DO NOT DRIVE AFTER TAKING Discharge Instructions Instructions: Community-Acquired Pneumonia, Adult (DC) Additional Instructions: At this time you have evidence of pneumonia on your ultrasound. Please take the 2 antibiotics as prescribed. Please be mindful, if you take the doxycycline on an empty stomach it will cause significant nausea and potentially vomiting. Please take the Symbicort inhaler, 2 puffs every 12 hours for the next 1 to 2 weeks. As we discussed together you are on the border between the need for admission versus discharge. If you have continued worsening of your symptoms you may require admission to the hospital. Please monitor your symptoms closely. If you notice any worsening of your symptoms, or any new symptoms such as vomiting, diarrhea, fever, chills, shortness of breath, chest pain, numbness, weakness, or fainting , please return immediately to the emergency department for reevaluation. Please follow up with your primary care provider as soon as possible for reassessment and reevaluation. As always, it was a pleasure participating in your medical care today. Referrals: Joe Lee [Primary Care Provider] - [facility] General Date/Time Provider Initiated Documentation: 06/16/24 14:32. [facility] Narrative: This is a pleasant 78-year-old male with a past medical history of diabetes, hypertension, hypothyroidism, tobacco use, who is seen by the OR, and has home health nursing, visit twice weekly, who presents today for evaluation of cough. Patient states that for the last week he has had a mild to moderate cough, he has had productive white sputum, he denies chest pain. He does admit to mild shortness of breath associated with this cough. He denies any chills. He is still smoking. He denies any hemoptysis, vomiting, or diarrhea. No other complaints at this time. No other modifying factors. He does not take any breathing treatments, he is not currently on antibiotics or steroids. Related Data Home Medications ?Medication ?Instructions ?Recorded ?Confirmed hydrochlorothiazide 25 mg tablet 25 mg PO DAILY 07/08/13 06/16/24 insulin aspart U-100 100 unit/mL 20 - 25 units SQ AC 07/08/13 06/16/24 (3 mL) subcutaneous pen (Novolog FlexPen U-100 Insulin aspart) insulin glargine 100 unit/mL 50 units IJ DAILY 07/08/13 06/16/24 subcutaneous solution (Lantus U-100 Insulin) levothyroxine 75 mcg tablet 112 mcg PO DAILY 07/08/13 06/16/24 omeprazole 20 mg capsule,delayed 20 mg PO DAILY 07/08/13 06/16/24 release simvastatin 80 mg tablet 80 mg PO DAILY 07/08/13 06/16/24 tamsulosin 0.4 mg capsule 0.4 mg PO DAILY 07/08/13 06/16/24 vardenafil 20 mg tablet (Levitra) 20 mg PO DAILY 07/08/13 06/16/24 hydromorphone 2 mg tablet 2 mg PO Q4H PRN PRN #8 tabs 09/30/14 06/16/24 (Dilaudid) prednisone 20 mg tablet 60 mg (3 x 20 mg) PO .QD ##12 10/26/16 06/16/24 Lactobacillus acidophilus 500 500 mmu cells PO DAILY 07/24/23 06/16/24 million cell capsule aspirin 81 mg tablet,delayed 81 mg PO DAILY 07/24/23 06/16/24 release atorvastatin 20 mg tablet 20 mg PO QPM 07/24/23 06/16/24 buspirone 10 mg tablet 20 mg PO BID 07/24/23 06/16/24 camphor See Rx Instructions topical BID 07/24/23 06/16/24 cyanocobalamin (vitamin B-12) 1,000 mcg PO DAILY 07/24/23 06/16/24 1,000 mcg capsule diclofenac sodium 1 % topical gel See Rx Instructions topical TID PRN 07/24/23 06/16/24 docusate sodium 100 mg capsule 100 mg PO BID PRN 07/24/23 06/16/24 dorzolamide 2 % eye drops 1 drp ophthalmic (eye) .Q12 07/24/23 06/16/24 duloxetine 60 mg capsule,delayed 60 mg PO DAILY 07/24/23 06/16/24 release empagliflozin 25 mg tablet 25 mg PO DAILY 07/24/23 06/16/24 (Jardiance) folic acid 1 mg tablet 3 mg PO DAILY 07/24/23 06/16/24 gabapentin 600 mg tablet 600 mg PO TID 07/24/23 06/16/24 lidocaine 5 % topical patch 1 patch topical DAILY 07/24/23 06/16/24 lidocaine HCl 4 % topical cream 1 applic topical DAILY 07/24/23 06/16/24 (Lidocaine Plus) lisinopril 40 mg tablet 40 mg PO DAILY 07/24/23 06/16/24 omega 5-yzb-cau-fish oil 1,000 mg 1 cap PO DAILY 07/24/23 06/16/24 (120 mg-180 mg) capsule (Fish Oil) semaglutide 0.25 mg or 0.5 mg (2 0.5 mg subcut QWEEK 07/24/23 06/16/24 mg/1.5 mL) subcutaneous pen injector (Ozempic) amoxicillin 875 mg-potassium 1 tab PO BID 7 days #14 tabs 06/16/24 clavulanate 125 mg tablet doxycycline hyclate 100 mg tablet 100 mg PO BID #20 tabs 06/16/24 methocarbamol 500 mg tablet 500 mg PO BID & HS PRN 06/16/24 06/16/24 prednisone 50 mg tablet 50 mg PO DAILY #5 tabs 06/16/24 Previous Rx's ?Medication ?Instructions ?Recorded hydromorphone 2 mg tablet 2 mg PO Q4H PRN PRN #8 tabs 09/30/14 (Dilaudid) prednisone 20 mg tablet 60 mg (3 x 20 mg) PO .QD ##12 10/26/16 amoxicillin 875 mg-potassium 1 tab PO BID 7 days #14 tabs 06/16/24 clavulanate 125 mg tablet doxycycline hyclate 100 mg tablet 100 mg PO BID #20 tabs 06/16/24 prednisone 50 mg tablet 50 mg PO DAILY #5 tabs 06/16/24 Allergies Allergy/AdvReac Type Severity Reaction Status Date / Time naproxen Allergy Mild Skin Rash Verified 06/16/24 14:24 General Stated Complaint: RespSymp MING: 4 Exam Narrative Exam Narrative: 1.Const: Well-nourished, Well-developed, appearing stated age 2.Eyes: PERRL, no conjunctival injection, and symmetrical lids. 3.ENT: Atraumatic external nose and ears. Moist MM. Neck: Symmetric, trachea midline, No thyromegaly. 4.CVS: +S1/S2, Peripheral pulses 2+ and equal in all extremities. Brisk capillary refill in all extremities. 5.RESP: Rhonchorous breath sounds, crackles in the left lower lobe and right upper lobe. No significant wheezes. 6.GI: Soft, Nontender/Nondistended, No hepatosplenomegaly. No guarding or rebound. 7.MSK: Normocephalic/Atraumatic, Extremities w/o deformity or ttp No cyanosis or clubbing, Normal movement of all extremities 8.Skin: Warm, Dry. No rashes or lesions. 9.Neuro: online marketing coordinator II-XII grossly intact. Sensation grossly intact, no focal neurologic deficits. 10.Psych: (AAO) x3. Appropriate mood and affect Course Vital Signs Vital signs: Vital Signs Temperature 36.7 C 06/16/24 14:25 Pulse 65 06/16/24 14:25 Respiratory Rate 24 06/16/24 14:25 Blood Pressure 118/70 06/16/24 14:25 Pulse Oximetry 88 L 06/16/24 14:25 Temperature 36.7 C 06/16/24 15:24 Temperature Source Oral 06/16/24 15:24 Pulse 65 06/16/24 15:24 Respiratory Rate 24 06/16/24 15:24 Respiratory Effort Non-Labored 06/16/24 15:24 Respiratory Depth Normal 06/16/24 15:24 Blood Pressure 112/68 06/16/24 15:24 Blood Pressure Position Sitting 06/16/24 15:24 Pulse Oximetry 90 L 06/16/24 15:24 Oxygen Delivery Method Room Air 06/16/24 15:24 Oxygen Flow Rate 0 06/16/24 15:24 Lab/Test Results Lab/Test Results: Laboratory Tests Range/Units 06/16/24 14:41 COVID-19 Source Nasopharynx SARS-CoV-2 (PCR) (Negative) Negative Influenza Type A (PCR) (Negative) Negative Influenza Type B (PCR) (Negative) Negative RSV (PCR) (Negative) Negative Medical Decision Making This is a pleasant 78-year-old male with a past medical history of diabetes, hypertension, hypothyroidism, tobacco use, who is seen by the OR, and has home health nursing, visit twice weekly, who presents today for evaluation of cough. Patient states that for the last week he has had a mild to moderate cough, he has had productive white sputum, he denies chest pain. He does admit to mild shortness of breath associated with this cough. He denies any chills. He is still smoking. He denies any hemoptysis, vomiting, or diarrhea. No other complaints at this time. No other modifying factors. He does not take any breathing treatments, he is not currently on antibiotics or steroids. Exam demonstrates a stable appearing male, oxygenation is currently around 91 to 92%. Concern for pneumonia, no pitting edema to suggest CHF. Will get a chest x-ray, check for COVID flu and RSV, monitor closely and reassess. 4:22 PM Patient feeling much better at this time, chest x-ray is read as negative but bedside ultrasound shows evidence of consolidation mild pneumonia in the left lower and right upper lung parekh. Oxygenation is 98% on room air. No evidence of pneumothorax on chest x-ray. With the evidence of pneumonia on my ultrasound, we will give Augmentin and doxycycline for coverage. Will give Symbicort inhaler. With the patient's age and risk factors I did discuss with the patient admission/observation to the hospital , and at this time through notable discussion, weighing the risks and benefits, utilizing a shared decision making process, and with a very clear discussion on the benefit of admission and the risks associated with discharge including the unlikely but potential worst case scenario of or lifelong disability the patient has refused admission and would like to go home. Patient is of a appropriate age to make decisions. The patient is of sound mind, appears clinically sober, and has capacity to make decisions by my clinical exam. Respecting the patient's wishes, they will be discharged home. I discussed with him the importance of continued close monitoring at home and if he has any worsening he needs to return for reassessment. I have extensively reviewed the treatment plan and discharge instructions with the patient. I have addressed all patient concerns at this time. The patient was made aware of what symptoms to monitor for that would warrant a return to the emergency department. Discussed the plan with the patient, they demonstrate verbal understanding and agreement with our assessment and plan at this time. The documentation in this chart was dictated using [employer] dictation software. Please excuse any dictation errors. Quality:SDOH Health Related Social Needs: No Data to Display PFSH All Active Problems (Updated 06/16/24 @ 16:03 by Jason Dixon DO) Community acquired pneumonia (Acute) Hypothyroidism (Chronic) Diabetes (Chronic) Hypertension (Chronic) Social History Smoking/Tobacco Use Status: Current every day Tobacco Type: cigarettes Smoking risk assessment performed?: Yes Alcohol Intake: never Drug use: Never Substance use type: does not use Do you feel safe at home: Yes Do you feel safe in your relationship?: Yes POCUS Exam (ED) Limited Thoracic Lung Exam DATE OF EXAM: 06/16/24 TIME OF EXAM: 16:18 PROVIDER THAT PERFORMED THE STUDY: Jason Dixon IS THIS A REPEAT EXAM DURING THIS ENCOUNTER: No REASON FOR EXAM: Pneumonia VISUALIZED STRUCTURES: right lateral, left lateral, right posterior and left posterior PERTINENT FINDINGS/IMPRESSION: B-lines/left side (lower) thoracis location: posterior and B-lines/right side (superior posterior) Exam complete
[2024-06-16] MEDS: Budesonide/Formoterol 160/4.5 6 GM 60 PUFF INH IH (16:19)
[2024-06-16] MEDS: Amoxicillin 875/Clav. 125 TAB PO (16:19)
[2024-06-16] MEDS: Doxycycline Hyclate 100 MG CAP PO (16:19)
== END 2024-06-16 16:29 | disposition home or self-care (01) ==
PROVIDERS: Emergency Provider Student in an Organized Health Care Education/Training Program; PCP Internal Medicine Geriatric Medicine
DX: J18.9 Pneumonia, unspecified organism (principal); I45.19 Other right bundle-branch block; I10 Essential (primary) hypertension; E03.9 Hypothyroidism, unspecified; E11.9 Type 2 diabetes mellitus without complications; F17.210 Nicotine dependence, cigarettes, uncomplicated; Z79.4 Long term (current) use of insulin; Z79.82 Long term (current) use of aspirin
CPT/HCPCS: 76604; 87637; 93005; 99285; 71045; 93010; 99284